=== PATIENT | male | born 1935 | race Caucasian/White ===

== ENCOUNTER 2017-03-19 10:33 | Observation (INO) ==
[2017-03-19] MEDS ORDERED: 0.9 % Sodium Chloride 1,000 ML IVC ONE (11:00)
--- NOTE | 2017-03-19 11:13 | Emergency Department Note ---
Disposition Clinical Impression: Orthostatic dizziness Syncope Qualifiers: Syncope type: unspecified Qualified Code(s): R55 - Syncope and collapse Chronic kidney disease Qualifiers: Chronic kidney disease stage: unspecified stage Qualified Code(s): N18.9 - Chronic kidney disease, unspecified Hypotension Qualifiers: Hypotension type: unspecified hypotension type Qualified Code(s): I95.9 - Hypotension, unspecified Disposition: Admitted As Inpatient Condition: Fair Referrals: Elbert Ashley DO [Primary Care Provider] - Forms: ED Satisfaction Letter Time of Disposition: 13:03 General Adult HPI - General Chief complaint: ED Syncope Stated complaint: Syncopal episode,right shoulder injury Time Seen by Provider: 03/19/17 11:00 Source: patient, family Mode of arrival: wheelchair Limitations: no limitations Nursing Notes Reviewed: Yes Vital Signs Reviewed: Yes - History of Present Illness HPI Narrative: 81-year-old male history of thyroid disease, chronic kidney disease s/p nephrectomy from renal cancer as well as low blood pressure presents for evaluation of syncope. Patient notes that he got up this morning to use the restroom. Patient does not recall the incidents of the fall but notes waking up in the morning on the floor and getting back to bed. Patient denies any specific prodrome. Family states this happened before within the past month and was instructed to be evaluated by cardiology with a Holter monitor which has not been performed. Patient stated he did lose consciousness but is unaware of how long. Patient's primary complaining of right shoulder pain. Patient denies any chest pain or shortness of breath. Denies any abdominal pain. No nausea or vomiting. Denies any headache. States that he does have a history of low blood pressure. No change in medications. Patient is instructed to ambulate with a walker however he is not been doing so. Lives at home with his . Pain Scale: 4 - Related Data Home Medications Medication Instructions Recorded Confirmed Levothyroxine [Synthroid] 75 mcg PO 0630 08/24/15 03/19/17 Carbidopa/Levodopa 2 tab PO TID 03/19/17 03/19/17 [Carbidopa-Levodopa 25-100 Tab] Midodrine HCl [Midodrine HCl] 5 mg PO TID 03/19/17 03/19/17 Tamsulosin [Flomax] 0.4 mg PO DAILY 03/19/17 03/19/17 Allergies Allergy/AdvReac Type Severity Reaction Status Date / Time No Known Allergies Allergy Verified 03/19/17 10:57 All systems ED: reviewed and negative except as stated. Constitutional: Denies: fever Cardiovascular: Denies: chest pain Respiratory: Denies: cough, dyspnea Gastrointestinal: Denies: abdominal pain, nausea, vomiting Genitourinary: Denies: dysuria Musculoskeletal: Denies: back pain Neurological: Denies: headache, weakness Past Medical History - Past Medical History Source: patient Medical history: Reports: cancer, other Surgical history: Reports: colectomy, herniorrhaphy, orthopedic, other, other Psychiatric history: Reports: no psych history - Social History Smoking Status: Former smoker Smokeless Tobacco Status: No Alcohol use: Reports: none Drug use: Reports: none Physical Exam - General Limitations: no limitations General appearance: alert, in no apparent distress - Head Head exam: atraumatic, normocephalic, normal inspection - Eye Eye exam: Present: normal appearance, PERRL, EOMI, miosis - ENT ENT exam: normal exam, normal oropharynx, mucous membranes moist - Neck Neck exam: Present: normal inspection, trachea midline - Chest Chest inspection: Present: normal inspection, symmetric chest wall rise - Respiratory Respiratory exam: Present: normal lung sounds bilaterally, respiratory distress - Cardiovascular Cardiovascular exam: Present: regular rate, normal rhythm. Absent: systolic murmur - Abdominal Exam Abdominal exam: Present: soft, Non-Tender - Extremities Exam Extremities exam: Present: normal inspection - Expanded Upper Extremity Exam Shoulder exam: Present: normal inspection, tenderness (Posterior right shoulder) . Absent: swelling, abrasion, ecchymosis, deformity Arm exam: Present: normal inspection. Absent: tenderness Elbow exam: Present: normal inspection. Absent: tenderness Forearm/Wrist exam: Present: normal inspection Hand exam: Present: normal inspection Vascular exam: Normal: capillary refill. Abnorm: radial pulse - Expanded Lower Extremity Exam Neurovascular/Tendon exam: Present: normal capillary refill - Back Exam Back exam: Present: normal inspection - Neurological Exam Neurological exam: Present: alert, oriented X3, CN II-XII intact - Skin Skin exam: Present: warm, dry, intact, normal color Course Course Narrative: Patient's medication was reviewed shows he is on carbidopa and levodopa however no specific diagnosis of Parkinson's. Also on Midrin. Patient likely has some autonomic dystrophy D which is causing his hypotension and recurrent falls. Patient in extensive evaluation with CT of the head and neck as well as imaging of the chest and right shoulder. Basic labs urinalysis and fluids. Disposition admission. - Reevaluation(s) Reevaluation #1: Patient seen and examined. Patient's pain is under control. No acute distress. Patient's repeat blood pressures were 160 systolic. Patient states he is feeling better. Time: 12:39 Vital Signs Temperature 98.9 F 03/19/17 10:54 Pulse Rate 74 03/19/17 10:54 Respiratory Rate 16 03/19/17 10:54 Blood Pressure 74/53 03/19/17 10:54 O2 Sat by Pulse Oximetry 96 03/19/17 10:54 Temperature 98.9 F 03/19/17 10:54 Pulse Rate 72 03/19/17 12:51 Respiratory Rate 14 03/19/17 12:51 Blood Pressure 172/103 03/19/17 12:51 O2 Sat by Pulse Oximetry 97 03/19/17 12:51 Oxygen Delivery Oxygen Delivery Room Air Medical Decision Making - [facility] Narrative Medical decision making narrative: 81-year-old male sent for evaluation of a single episode. Patient does not recall initial prodrome prior to the loss of conscious. Patient was using the restroom. This was unwitnessed. Patient does have a history of syncope in the past. Does not ambulate with a walker assistance. Patient's initial blood pressure was low. Says blood pressures have improved. His medication list shows that he is on carbidopa levodopa as well as Midorin. Patient's review of systems otherwise unremarkable. Patient had imaging of the head and neck which were unremarkable. Chest x-ray also unremarkable. Imaging of the shoulder shows no evidence of fracture. Likely muscle skeletal soft tissue origin related to the fall. Patient does have an element of chronic kidney disease and reports that he has had one kidney removed in the past due to renal cancer. Patient will be admitted to the hospital service for further evaluation and monitoring for his recurrent syncopal episodes which are likely the result of autonomic dysfunction. Patient was orthostatic. - Lab Data Lab results reviewed: Yes I reviewed the patient's lab results. Result diagrams: 03/19/17 11:23 03/19/17 11:23 Lab Results 03/19/17 03/19/17 03/19/17 Range/Units 11:23 11:23 11:23 WBC 8.5 (4.3-11.1) K/mcL RBC 4.67 (4.19-5.50) M/mcL Hgb 14.5 (12.9-16.9) g/dL Hct 42.8 (37.5-50.1) % MCV 91.6 (83.0-100.0) fL MCH 31.0 (28.0-33.3) pg MCHC 33.9 (31.6-35.5) g/dL RDW 12.4 (11.5-14.5) % Plt Count 143 (140-400) K/mcL MPV 9.8 (9.4-12.4) fL Immature Gran % 0.5 (0-4) % Seg Neutrophils % 82.5 % Lymphocytes % 10.5 % Monocytes % 5.9 % Eosinophils % 0.4 % Basophils % 0.2 % Neutrophils # 7.0 (1.6-8.9) K/mcL Lymphocytes # 0.9 (0.6-4.6) K/mcL Monocytes # 0.5 (0.0-1.3) K/mcL Eosinophils # 0.0 (0.0-0.6) K/mcL Basophils # 0.0 (0.0-0.2) K/mcL Sodium 139 (136-145) mEq/L Potassium 4.4 (3.5-5.1) mEq/L Chloride 106 (98-107) mEq/L Carbon Dioxide 25 (23-29) mEq/L BUN 23 (8-23) mg/dL Creatinine 1.47 H (0.70-1.30) mg/dL Est GFR ( Amer) 56 L (> 60) Est GFR (Non-Af Amer) 46 L (> 60) BUN/Creatinine Ratio 16 (6-26) Glucose 122 H (70-105) mg/dL Calculated Osmolality 293 (280-300) Lactic Acid 2.2 (0.5-2.2) mmol/L Calcium 9.1 (8.6-10.3) mg/dL Total Bilirubin 0.8 (0.3-1.0) mg/dL AST 17 (13-39) Units/L ALT < 3 L (7-52) Units/L Alkaline Phosphatase 73 (34-104) Units/L Creatine Kinase 146 (30-223) Units/L Troponin I (< 0.04) ng/mL Serum Total Protein 6.6 (6.4-8.9) g/dL Albumin 4.4 (3.5-5.7) g/dL Globulin 2.2 L (2.4-3.5) g/dL Albumin/Globulin Ratio 2.0 (1.1-2.2) TSH (0.340-5.600) mcIU/mL Urine Color (Yellow) Urine Clarity (Clear) Urine pH (5.0-8.0) pH Units Ur Specific [place] (1.010-1.025) Urine Protein (Neg-Trace) mg/dL Urine Glucose (UA) (Normal) mg/dL Urine Ketones (Negative) mg/dL Urine Blood (Negative) Urine Nitrite (Negative) Urine Bilirubin (Negative) Urine Urobilinogen (Normal) mg/dL Ur Leukocyte Esterase (Negative) Blood Type Antibody Screen 03/19/17 03/19/17 03/19/17 Range/Units 11:23 11:23 11:57 WBC (4.3-11.1) K/mcL RBC (4.19-5.50) M/mcL Hgb (12.9-16.9) g/dL Hct (37.5-50.1) % MCV (83.0-100.0) fL MCH (28.0-33.3) pg MCHC (31.6-35.5) g/dL RDW (11.5-14.5) % Plt Count (140-400) K/mcL MPV (9.4-12.4) fL Immature Gran % (0-4) % Seg Neutrophils % % Lymphocytes % % Monocytes % % Eosinophils % % Basophils % % Neutrophils # (1.6-8.9) K/mcL Lymphocytes # (0.6-4.6) K/mcL Monocytes # (0.0-1.3) K/mcL Eosinophils # (0.0-0.6) K/mcL Basophils # (0.0-0.2) K/mcL Sodium (136-145) mEq/L Potassium (3.5-5.1) mEq/L Chloride (98-107) mEq/L Carbon Dioxide (23-29) mEq/L BUN (8-23) mg/dL Creatinine (0.70-1.30) mg/dL Est GFR ( Amer) (> 60) Est GFR (Non-Af Amer) (> 60) BUN/Creatinine Ratio (6-26) Glucose (70-105) mg/dL Calculated Osmolality (280-300) Lactic Acid (0.5-2.2) mmol/L Calcium (8.6-10.3) mg/dL Total Bilirubin (0.3-1.0) mg/dL AST (13-39) Units/L ALT (7-52) Units/L Alkaline Phosphatase (34-104) Units/L Creatine Kinase (30-223) Units/L Troponin I < 0.03 (< 0.04) ng/mL Serum Total Protein (6.4-8.9) g/dL Albumin (3.5-5.7) g/dL Globulin (2.4-3.5) g/dL Albumin/Globulin Ratio (1.1-2.2) TSH 1.109 (0.340-5.600) mcIU/mL Urine Color (Yellow) Urine Clarity (Clear) Urine pH (5.0-8.0) pH Units Ur Specific [place] (1.010-1.025) Urine Protein (Neg-Trace) mg/dL Urine Glucose (UA) (Normal) mg/dL Urine Ketones (Negative) mg/dL Urine Blood (Negative) Urine Nitrite (Negative) Urine Bilirubin (Negative) Urine Urobilinogen (Normal) mg/dL Ur Leukocyte Esterase (Negative) Blood Type O NEGATIVE Antibody Screen NEGATIVE 03/19/17 Range/Units 12:09 WBC (4.3-11.1) K/mcL RBC (4.19-5.50) M/mcL Hgb (12.9-16.9) g/dL Hct (37.5-50.1) % MCV (83.0-100.0) fL MCH (28.0-33.3) pg MCHC (31.6-35.5) g/dL RDW (11.5-14.5) % Plt Count (140-400) K/mcL MPV (9.4-12.4) fL Immature Gran % (0-4) % Seg Neutrophils % % Lymphocytes % % Monocytes % % Eosinophils % % Basophils % % Neutrophils # (1.6-8.9) K/mcL Lymphocytes # (0.6-4.6) K/mcL Monocytes # (0.0-1.3) K/mcL Eosinophils # (0.0-0.6) K/mcL Basophils # (0.0-0.2) K/mcL Sodium (136-145) mEq/L Potassium (3.5-5.1) mEq/L Chloride (98-107) mEq/L Carbon Dioxide (23-29) mEq/L BUN (8-23) mg/dL Creatinine (0.70-1.30) mg/dL Est GFR ( Amer) (> 60) Est GFR (Non-Af Amer) (> 60) BUN/Creatinine Ratio (6-26) Glucose (70-105) mg/dL Calculated Osmolality (280-300) Lactic Acid (0.5-2.2) mmol/L Calcium (8.6-10.3) mg/dL Total Bilirubin (0.3-1.0) mg/dL AST (13-39) Units/L ALT (7-52) Units/L Alkaline Phosphatase (34-104) Units/L Creatine Kinase (30-223) Units/L Troponin I (< 0.04) ng/mL Serum Total Protein (6.4-8.9) g/dL Albumin (3.5-5.7) g/dL Globulin (2.4-3.5) g/dL Albumin/Globulin Ratio (1.1-2.2) TSH (0.340-5.600) mcIU/mL Urine Color Yellow (Yellow) Urine Clarity Clear (Clear) Urine pH 6.0 (5.0-8.0) pH Units Ur Specific [place] 1.019 (1.010-1.025) Urine Protein Negative (Neg-Trace) mg/dL Urine Glucose (UA) Normal (Normal) mg/dL Urine Ketones Negative (Negative) mg/dL Urine Blood Negative (Negative) Urine Nitrite Negative (Negative) Urine Bilirubin Negative (Negative) Urine Urobilinogen Normal (Normal) mg/dL Ur Leukocyte Esterase Negative (Negative) Blood Type Antibody Screen - Radiology Data Radiology results reviewed: Yes I reviewed the patient's radiology results. Chest X-Ray 03/19/17 11:00 IMPRESSION: No evidence for acute cardiopulmonary process. D/ / 03/19/2017 11:26:27 Kaleb Woodruff MD / bcarter Interpreting Provider: Kaleb Woodruff MD Shoulder X-Ray 03/19/17 11:09 IMPRESSION: No acute abnormalities. Degenerative changes to the AC joint. D/ / 03/19/2017 11:27:04 Kaleb Woodruff MD / lgray Interpreting Provider: Kaleb Woodruff MD Cervical Spine CT 03/19/17 11:10 IMPRESSION: No acute abnormality of the cervical spine. D/ / Alejandro Vail MD / Alejandro Vail MD Interpreting Provider: Alejandro Vail MD Head CT 03/19/17 11:10 IMPRESSION: No acute intracranial abnormality. D/ / Kaleb Woodruff MD / Kaleb Woodruff MD Interpreting Provider: Kaleb Woodruff MD - EKG Data EKG #1 EKG attestation: Yes I reviewed and interpreted this EKG. EKG shows normal: sinus rhythm Rate: normal Rhythm: NSR, arrhythmia [place]/QRS: left axis deviation, LAHB/LAFB Voltage: c/w LVH Interpretation: no acute changes, nonspecific ST-T wave changes S.B.A.RHeather - S.B.AHeatherRHeather Situation: Demographics Background: Presenting Complaint Assessment: Vital Signs, Course and respsone to treatment, Patient/Family Expectation Recommendation: Barrier(s) to disposition, Recommendation based on pending studies, treatments, or consults S.B.A.RHeather Report Given to: Dr. Aga Lugo Repor Time: 13:03
[2017-03-19] MEDS ORDERED: *HR* HYDROcodone/Acet 5/325 mg TABLET PO ONE (11:15)
--- NOTE | 2017-03-19 11:15 | Emergency Department Note ---
Disposition Clinical Impression: Syncope, Chronic kidney disease, Orthostatic dizziness, Hypotension Disposition: Admitted As Inpatient Condition: Fair General Adult HPI - General Chief complaint: ED Syncope Stated complaint: Syncopal episode,right shoulder injury Time Seen by Provider: 03/19/17 11:00 Source: patient, family Mode of arrival: wheelchair Limitations: no limitations - History of Present Illness Pain Scale: 4 - Related Data Home Medications Medication Instructions Recorded Confirmed Levothyroxine [Synthroid] 75 mcg PO 0630 08/24/15 03/19/17 Carbidopa/Levodopa 2 tab PO TID 03/19/17 03/19/17 [Carbidopa-Levodopa 25-100 Tab] Midodrine HCl [Midodrine HCl] 5 mg PO TID 03/19/17 03/19/17 Tamsulosin [Flomax] 0.4 mg PO DAILY 03/19/17 03/19/17 Allergies Allergy/AdvReac Type Severity Reaction Status Date / Time No Known Allergies Allergy Verified 03/19/17 10:57 Past Medical History - Past Medical History Medical history: Reports: cancer, other Surgical history: Reports: colectomy, herniorrhaphy, orthopedic, other, other Psychiatric history: Reports: no psych history - Social History Smoking Status: Former smoker Smokeless Tobacco Status: No Alcohol use: Reports: none Drug use: Reports: none Physical Exam - General Limitations: no limitations General appearance: alert, in no apparent distress Course Vital Signs Temperature 98.9 F 03/19/17 10:54 Pulse Rate 74 03/19/17 10:54 Respiratory Rate 16 03/19/17 10:54 Blood Pressure 74/53 03/19/17 10:54 O2 Sat by Pulse Oximetry 96 03/19/17 10:54 Temperature 98.0 F 03/19/17 14:20 Pulse Rate 81 03/19/17 15:27 Respiratory Rate 16 03/19/17 14:20 Blood Pressure 151/91 03/19/17 15:27 O2 Sat by Pulse Oximetry 95 03/19/17 14:20 Oxygen Delivery Oxygen Delivery Room Air Medical Decision Making - Lab Data Result diagrams: 03/19/17 11:23 03/19/17 11:23 Lab Results 03/19/17 03/19/17 03/19/17 Range/Units 11:23 11:23 11:23 WBC 8.5 (4.3-11.1) K/mcL RBC 4.67 (4.19-5.50) M/mcL Hgb 14.5 (12.9-16.9) g/dL Hct 42.8 (37.5-50.1) % MCV 91.6 (83.0-100.0) fL MCH 31.0 (28.0-33.3) pg MCHC 33.9 (31.6-35.5) g/dL RDW 12.4 (11.5-14.5) % Plt Count 143 (140-400) K/mcL MPV 9.8 (9.4-12.4) fL Immature Gran % 0.5 (0-4) % Seg Neutrophils % 82.5 % Lymphocytes % 10.5 % Monocytes % 5.9 % Eosinophils % 0.4 % Basophils % 0.2 % Neutrophils # 7.0 (1.6-8.9) K/mcL Lymphocytes # 0.9 (0.6-4.6) K/mcL Monocytes # 0.5 (0.0-1.3) K/mcL Eosinophils # 0.0 (0.0-0.6) K/mcL Basophils # 0.0 (0.0-0.2) K/mcL Sodium 139 (136-145) mEq/L Potassium 4.4 (3.5-5.1) mEq/L Chloride 106 (98-107) mEq/L Carbon Dioxide 25 (23-29) mEq/L BUN 23 (8-23) mg/dL Creatinine 1.47 H (0.70-1.30) mg/dL Est GFR ( Amer) 56 L (> 60) Est GFR (Non-Af Amer) 46 L (> 60) BUN/Creatinine Ratio 16 (6-26) Glucose 122 H (70-105) mg/dL Calculated Osmolality 293 (280-300) Lactic Acid 2.2 (0.5-2.2) mmol/L Calcium 9.1 (8.6-10.3) mg/dL Total Bilirubin 0.8 (0.3-1.0) mg/dL AST 17 (13-39) Units/L ALT < 3 L (7-52) Units/L Alkaline Phosphatase 73 (34-104) Units/L Creatine Kinase 146 (30-223) Units/L Troponin I (< 0.04) ng/mL Serum Total Protein 6.6 (6.4-8.9) g/dL Albumin 4.4 (3.5-5.7) g/dL Globulin 2.2 L (2.4-3.5) g/dL Albumin/Globulin Ratio 2.0 (1.1-2.2) TSH (0.340-5.600) mcIU/mL Urine Color (Yellow) Urine Clarity (Clear) Urine pH (5.0-8.0) pH Units Ur Specific [place] (1.010-1.025) Urine Protein (Neg-Trace) mg/dL Urine Glucose (UA) (Normal) mg/dL Urine Ketones (Negative) mg/dL Urine Blood (Negative) Urine Nitrite (Negative) Urine Bilirubin (Negative) Urine Urobilinogen (Normal) mg/dL Ur Leukocyte Esterase (Negative) Blood Type Antibody Screen 03/19/17 03/19/17 03/19/17 Range/Units 11:23 11:23 11:57 WBC (4.3-11.1) K/mcL RBC (4.19-5.50) M/mcL Hgb (12.9-16.9) g/dL Hct (37.5-50.1) % MCV (83.0-100.0) fL MCH (28.0-33.3) pg MCHC (31.6-35.5) g/dL RDW (11.5-14.5) % Plt Count (140-400) K/mcL MPV (9.4-12.4) fL Immature Gran % (0-4) % Seg Neutrophils % % Lymphocytes % % Monocytes % % Eosinophils % % Basophils % % Neutrophils # (1.6-8.9) K/mcL Lymphocytes # (0.6-4.6) K/mcL Monocytes # (0.0-1.3) K/mcL Eosinophils # (0.0-0.6) K/mcL Basophils # (0.0-0.2) K/mcL Sodium (136-145) mEq/L Potassium (3.5-5.1) mEq/L Chloride (98-107) mEq/L Carbon Dioxide (23-29) mEq/L BUN (8-23) mg/dL Creatinine (0.70-1.30) mg/dL Est GFR ( Amer) (> 60) Est GFR (Non-Af Amer) (> 60) BUN/Creatinine Ratio (6-26) Glucose (70-105) mg/dL Calculated Osmolality (280-300) Lactic Acid (0.5-2.2) mmol/L Calcium (8.6-10.3) mg/dL Total Bilirubin (0.3-1.0) mg/dL AST (13-39) Units/L ALT (7-52) Units/L Alkaline Phosphatase (34-104) Units/L Creatine Kinase (30-223) Units/L Troponin I < 0.03 (< 0.04) ng/mL Serum Total Protein (6.4-8.9) g/dL Albumin (3.5-5.7) g/dL Globulin (2.4-3.5) g/dL Albumin/Globulin Ratio (1.1-2.2) TSH 1.109 (0.340-5.600) mcIU/mL Urine Color (Yellow) Urine Clarity (Clear) Urine pH (5.0-8.0) pH Units Ur Specific [place] (1.010-1.025) Urine Protein (Neg-Trace) mg/dL Urine Glucose (UA) (Normal) mg/dL Urine Ketones (Negative) mg/dL Urine Blood (Negative) Urine Nitrite (Negative) Urine Bilirubin (Negative) Urine Urobilinogen (Normal) mg/dL Ur Leukocyte Esterase (Negative) Blood Type O NEGATIVE Antibody Screen NEGATIVE 03/19/17 Range/Units 12:09 WBC (4.3-11.1) K/mcL RBC (4.19-5.50) M/mcL Hgb (12.9-16.9) g/dL Hct (37.5-50.1) % MCV (83.0-100.0) fL MCH (28.0-33.3) pg MCHC (31.6-35.5) g/dL RDW (11.5-14.5) % Plt Count (140-400) K/mcL MPV (9.4-12.4) fL Immature Gran % (0-4) % Seg Neutrophils % % Lymphocytes % % Monocytes % % Eosinophils % % Basophils % % Neutrophils # (1.6-8.9) K/mcL Lymphocytes # (0.6-4.6) K/mcL Monocytes # (0.0-1.3) K/mcL Eosinophils # (0.0-0.6) K/mcL Basophils # (0.0-0.2) K/mcL Sodium (136-145) mEq/L Potassium (3.5-5.1) mEq/L Chloride (98-107) mEq/L Carbon Dioxide (23-29) mEq/L BUN (8-23) mg/dL Creatinine (0.70-1.30) mg/dL Est GFR ( Amer) (> 60) Est GFR (Non-Af Amer) (> 60) BUN/Creatinine Ratio (6-26) Glucose (70-105) mg/dL Calculated Osmolality (280-300) Lactic Acid (0.5-2.2) mmol/L Calcium (8.6-10.3) mg/dL Total Bilirubin (0.3-1.0) mg/dL AST (13-39) Units/L ALT (7-52) Units/L Alkaline Phosphatase (34-104) Units/L Creatine Kinase (30-223) Units/L Troponin I (< 0.04) ng/mL Serum Total Protein (6.4-8.9) g/dL Albumin (3.5-5.7) g/dL Globulin (2.4-3.5) g/dL Albumin/Globulin Ratio (1.1-2.2) TSH (0.340-5.600) mcIU/mL Urine Color Yellow (Yellow) Urine Clarity Clear (Clear) Urine pH 6.0 (5.0-8.0) pH Units Ur Specific [place] 1.019 (1.010-1.025) Urine Protein Negative (Neg-Trace) mg/dL Urine Glucose (UA) Normal (Normal) mg/dL Urine Ketones Negative (Negative) mg/dL Urine Blood Negative (Negative) Urine Nitrite Negative (Negative) Urine Bilirubin Negative (Negative) Urine Urobilinogen Normal (Normal) mg/dL Ur Leukocyte Esterase Negative (Negative) Blood Type Antibody Screen Attestation Statement - Attestation Attestation: I examined this patient and my medical decision-making was reviewed with the Resident Physician. I agree with the documented findings, disposition and treatment plan as described except to the extent set forth below. [id number] time provided Patient had a syncopal event. This is recurrent. The patient was to be set up with a Holter monitor as an outpatient but has yet to do so. He appears in no acute distress on exam. ECG reviewed by me
[2017-03-19 11:35] LABS: Basophils % 0.2 %; Eosinophils % 0.4 %; Hematocrit 42.8 % (37.5-50.1); Hemoglobin 14.5 g/dL (12.9-16.9); Immature Granulocytes % 0.5 % (0-4); Lymphocytes # 0.9 K/mcL (0.6-4.6); Lymphocytes % 10.5 %; Mean Corpuscular HGB Conc 33.9 g/dL (31.6-35.5); Mean Corpuscular Volume 91.6 fL (83.0-100.0); Mean Platelet Volume 9.8 fL (9.4-12.4); Monocytes # 0.5 K/mcL (0.0-1.3); Monocytes % 5.9 %; Platelet Count 143 K/mcL (140-400); Red Blood Count 4.67 M/mcL (4.19-5.50); Red Cell Distribution Width 12.4 % (11.5-14.5); Segmented Neutrophils % 82.5 %
[2017-03-19 11:51] LABS: Alanine Aminotransferase < 3 Units/L (7-52); Albumin 4.4 g/dL (3.5-5.7); Alkaline Phosphatase 73 Units/L (34-104); Aspartate Amino Transferase 17 Units/L (13-39); BUN/Creatinine Ratio 16 (6-26); Bilirubin,Total 0.8 mg/dL (0.3-1.0); Blood Urea Nitrogen 23 mg/dL (8-23); Calcium 9.1 mg/dL (8.6-10.3); Carbon Dioxide 25 mEq/L (23-29); Chloride 106 mEq/L (98-107); Creatine Kinase 146 Units/L (30-223); Globulin 2.2 g/dL (2.4-3.5); Glucose 122 mg/dL (70-105); Osmolality,Calculated 293 (280-300); Potassium 4.4 mEq/L (3.5-5.1); Sodium 139 mEq/L (136-145); Total Protein 6.6 g/dL (6.4-8.9); eGFR For African Americans 56 (> 60); eGFR For Non-African Americans 46 (> 60)
[2017-03-19 12:28] LABS: Bilirubin,Urine Negative (Negative); Blood,Urine Negative (Negative); Clarity,Urine Clear (Clear); Color,Urine Yellow (Yellow); Glucose,Urine (UA) Normal (Normal); Ketones,Urine Negative (Negative); Leukocyte Esterase,Urine Negative (Negative); Nitrite,Urine Negative (Negative); Protein,Urine Negative (Neg-Trace); Specific Gravity,Urine 1.019 (1.010-1.025); Urobilinogen,Urine Normal (Normal)
[2017-03-19] MEDS ORDERED: Naloxone 0.4 MG/ML INJ IVP PRN (14:14)
[2017-03-19] MEDS ORDERED: 0.9 % Sodium Chloride 1,000 ML IVC SCH (14:15)
--- NOTE | 2017-03-19 14:22 | Internal Med History&Physical ---
<Aron Glass - Last Filed: 03/19/17 14:30> Date of Encounter: 03/19/17 Time of Encounter: 14:20 Assessment and Plan (1) Vasodepressor syncope Current visit: Yes Status: Acute Patient was admitted today following a syncopal event in which he did not sustain head trauma at 0400 this morning secondary to vasodepressor syndrome He has had a thorough workup in the past including a tilt table and is following with cardiology. Cardiology has previously diagnosed the patient with vasodepressor syndrome, and he is taking midodrine The family discussed that approximately one month ago he had a similar event and that after thorough discussion with Dr. 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 Had a nephrectomy in 1998 SR Cr stable -avoid nephrotoxins -IVF 100ml/hr -BMP in the am Qualifiers: Chronic kidney disease stage: unspecified stage Qualified Code(s): N18.9 - Chronic kidney disease, unspecified (5) Hypertension Current visit: Yes Status: Acute Was initially hypotensive on arrival however now is hypertensive urgency with SBP in the 190s -Hydralazine IV push every 6 hours when necessary for SBP greater than 160 Qualifiers: Hypertension type: secondary to other renal disorders Qualified Code(s): I15.1 - Hypertension secondary to other renal disorders (6) DVT prophylaxis Current visit: Yes Status: Acute Heparin 5000 units SC BID Internal Medicine - H&P: HPI Chief complaint: syncope Admitted From: Home Plans for Post Hospital Care: Home History of present illness: Mr. Burrell is a 81 year old male with a PMH of hypothyroidism and chronic kidney disease S/P nephrectomy for renal cancer. He presents today for a syncopal event which occurred at 0400 this morning. The patient notes that when he awoke to use the restroom he turns or loss of consciousness. He reports that he was dizzy prior to this other than that no additional specific prodrome. He states this has been occurring intermittently and he is seeing cardiology for this issue. If her evaluation of his past history reveals that he has been diagnosed with vasodepressive syndrome after having a positive tilt table test. Initial workup in the emergency department included a head CT, shoulder x-ray and CT of neck which were found to be unremarkable. Lab workup was also unremarkable. The patient is being admitted for further monitoring and evaluation of recurring syncope. Past Med Surg Social Fam HX - Past Medical History Medical history: cancer, other Psychiatric history: no psych history - Past Surgical History Surgical History: colectomy, herniorrhaphy, orthopedic, other, other - Social History Smoking Status: Former smoker Smokeless Tobacco Status: No Alcohol use: none Drug use: none - Additional Family History Additional family history: Noncontributory Internal Medicine - H&P: Meds Levothyroxine [Synthroid] 75 mcg PO 0630 08/24/15 [History] Carbidopa/Levodopa [Carbidopa-Levodopa 25-100 Tab] 2 tab PO TID 03/19/17 [ History] Midodrine HCl [Midodrine HCl] 5 mg PO TID 03/19/17 [History] Tamsulosin [Flomax] 0.4 mg PO DAILY 03/19/17 [History] 3 Allergy/AdvReac Type Severity Reaction Status Date / Time No Known Allergies Allergy Verified 03/19/17 10:57 All Systems PM: A 10-system review of systems was performed and is negative for pertinent findings except as documented above in the HPI. - Constitutional Constitutional: no chills, no fever(s), no night sweats - EENT Eyes: blurry vision (chronic), no change in vision, no discharge, no pain, no photophobia Ears: no ear discharge, no ear pain, no tinnitus Nose, mouth and throat: no dysphagia, no nasal discharge, no neck pain, no sore throat - Cardiovascular Cardiovascular ROS IM: lightheadedness, syncope, no chest pain, no diaphoresis, no dyspnea, no irregular heart rhythm, no palpitations - Respiratory Respiratory: no cough, no dyspnea, no wheezing, no excessive phlegm production - Gastrointestinal Gastrointestinal: no abdominal pain, no diarrhea, no hematemesis, no hematochezia, no melena, no nausea, no vomiting - Musculoskeletal Musculoskeletal ROS IM: no numbness, no tingling - Integumentary Integumentary IM: no rash, no unusual bruising - Neurological Neurological ROS: dizziness, frequent falls, no confusion, no convulsions, no focal weakness, no headache(s), no numbness, no tingling, no tremor(s) - Hematologic/Lymphatic Hematologic/Lymphatic: no easy bruising - Constitutional Vitals: Temp Pulse Resp BP Pulse Ox 98.9 F 75 14 179/107 97 03/19/17 10:54 03/19/17 13:03 03/19/17 12:51 03/19/17 13:03 03/19/17 12:51 General appearance: Present: cooperative, A&O X 3, no acute distress, answers questions appropriately - Head Head exam: Present: atraumatic, normocephalic - Eye Eye exam: Present: PERRL, conjuntiva pink, sclera anicteric Pupils: Present: PERRL - Neck Neck exam general surgery: Present: supple, trachea midline. Absent: lymphadenopathy - Respiratory Respiratory exam: Present: CTAB. Absent: accessory muscle use, rales, rhonchi, wheezes - Cardiovascular Cardiovascular exam: Present: RRR, +S1, +S2. Absent: diastolic murmur, gallop, rubs, systolic murmur - GI/Abdominal GI/Abdominal exam: Present: normal bowel sounds, soft, no peritoneal signs. Absent: distended, tenderness - Extremities Exam Extremities exam: Present: warm, radial pulses palpable and symmetrical. Absent : calf tenderness, cyanotic, pedal edema - Neurological Exam Neurological exam: Present: CN II-XII intact, oriented X3, no focal deficits. Absent: pronater drift, facial droop, speech deficit - Skin Skin exam: Present: dry, intact Internal Med - H&P Results - Labs CBC & Chem 7: 03/19/17 11:23 03/19/17 11:23 - EKG Data -: EKG Interpreted by Myself EKG shows normal: sinus rhythm - EKG Data EKG comments: Sinus rhythm with sinus arrhythmia 03/19/17 14:22 - Impressions Impressions Chest X-Ray 03/19/17 11:00 IMPRESSION: No evidence for acute cardiopulmonary process. D/ / 03/19/2017 11:26:27 Kaleb Woodruff MD / [email or web address] Interpreting Provider: Kaleb Woodruff MD Shoulder X-Ray 03/19/17 11:09 IMPRESSION: No acute abnormalities. Degenerative changes to the AC joint. D/ / 03/19/2017 11:27:04 Kaleb Woodruff MD / [facility] Interpreting Provider: Kaleb Woodruff MD Cervical Spine CT 03/19/17 11:10 IMPRESSION: No acute abnormality of the cervical spine. D/ / Alejandro Vail MD / Alejandro Vail MD Interpreting Provider: Alejandro Vail MD Head CT 03/19/17 11:10 IMPRESSION: No acute intracranial abnormality. D/ / Kaleb Woodruff MD / Kaleb Woodruff MD Interpreting Provider: Kaleb Woodruff MD <Walker Oliva T - Last Filed: 03/19/17 21:44> Date of Encounter: 03/19/17 Internal Medicine - H&P: HPI History of present illness: Mr. Burrell is a 81 year old male All Systems PM: A 10-system review of systems was performed and is negative for pertinent findings except as documented above in the HPI. - Constitutional Vitals: Temp Pulse Resp BP Pulse Ox 97.9 F 68 18 119/73 96 03/19/17 19:54 03/19/17 19:54 03/19/17 19:54 03/19/17 19:54 03/19/17 19:54 Internal Med - H&P Results - Labs CBC & Chem 7: 03/19/17 11:23 03/19/17 11:23 Labs: Cardiac Enzymes 03/19/17 Range/Units 15:53 Troponin I < 0.03 (< 0.04) ng/mL - Attending Attestation The pat. was independently examined and his available records were reviewed. I agree with the DELI COOK's A&P. 81 yr old man with history of syncope extensively w/u in the recent past. No significant injury today following the syncopal event. Cardiology consulted. Echo and Carotid doppler U/S done and results pending.
[2017-03-19] MEDS: Carbidopa/Levodopa 25/100 TABLET PO SCH ×2 (15:26→20:36)
[2017-03-19] MEDS: amLODIPine 5 MG TABLET PO SCH (15:30)
--- NOTE | 2017-03-19 15:35 | Cardiology Consult Note ---
Date of Encounter: 03/19/17 Time of Encounter: 15:23 Assessment and Plan (1) Vasodepressor syncope Current Visit: Yes Status: Acute Syncopal event likely due to vasodepressor syncope. Orthostatic vitals are positive. H/o abnormal tilt table test in 2016 suggesting predisposition to vasodepressor syncope. B/p in the 70's systolic on arrival. He is now hypertensive. Agree with IV hydration. Add compression stockings. Continue midodrine. We will add norvasc for hypertension. Discussed liberal fluid and salt intake at home. Continue to monitor telemetry. Check TTE. (2) Orthostatic dizziness Current Visit: Yes Status: Acute (3) Hypertension Current Visit: Yes Status: Acute Add norvasc. Qualifiers: Hypertension type: essential hypertension Qualified Code(s): I10 - Essential (primary) hypertension Discussion w patient/family: The assessment and plan as outlined above was discussed with the patient and/or family members who expressed understanding and agreement. All questions were answered. Thank you for involving us in the care of your patient. Please call with any questions. History of Present Illness Consult date: 03/19/17 Requesting physician: Aron Glass Consult reason: syncope Chief complaint: Syncopal event History of present illness: Mr. Burrell is a 81 year old male with a past medical history of orthostatic hypotension, hypothyroidism, and Parkisons who presents after having syncopal event at home. He woke up at 4:00 am this morning and went to the bathroom. When he stood up from the toilet to walk back to his bed he fell. He says he blacked out. He did have dizziness when standing. He hit his shoulder when he fell and he cannot move his arm well now. 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 He underwent tilt test in 2016 that suggest predisposition to vasodepressor syncope. Midodrine was started shortly after for orthostatic hypotension that did not resolve with liberal fluid intake. He drinks 60 ounces of water a day and a bottle of gatoraid. He also drinks two cups of coffee. According to past records he declined echocardiogram or further work-up for his syncope in the past. This is his first hospitalization for syncope. Past Med Surg Social Fam HX - Past Medical History Attestation: Yes The following information was validated with the patient. Medical history: cancer, other (Orthostatic hypotension, parkinsons symptoms ) Psychiatric history: no psych history - Past Surgical History Surgical History: colectomy, herniorrhaphy, orthopedic, other, other - Social History Smoking Status: Former smoker Smokeless Tobacco Status: No Alcohol use: none Drug use: none Medications and Allergies Levothyroxine [Synthroid] 75 mcg PO 0630 08/24/15 [History] Carbidopa/Levodopa [Carbidopa-Levodopa 25-100 Tab] 2 tab PO TID 03/19/17 [ History] Midodrine HCl [Midodrine HCl] 5 mg PO TID 03/19/17 [History] Tamsulosin [Flomax] 0.4 mg PO DAILY 03/19/17 [History] 3 Allergy/AdvReac Type Severity Reaction Status Date / Time No Known Allergies Allergy Verified 03/19/17 10:57 All Systems Review: A 10-system review of systems was performed and is negative for pertinent findings except as documented above in the HPI. Physical Examination Vital Signs, Last 4 Hours Temp Pulse Resp BP Pulse Ox 03/19/17 14:20 98.0 F 85 16 196/133 95 General: Conversant, No Apparent Distress HEENT: Atraumatic, Normocephaly, Mucus Membranes Moist Neck: No JVD, Normal carotid pulses Cardiac: Reg Rate and Rhythm, Normal S1 and S2, No Murmur Lungs: Normal Breath Sounds, No Wheeze, Rales, Rhonchi Neuro: Alert and responsive, No focal deficits noted Abdomen: Soft, Non-Tender Skin: No rashes noted on visualized skin Musculoskeletal: No Chest Wall Tenderness Extremities: No Clubbing, No Cyanosis, No Edema, Normal Pulses, Other (Limited mobility right shoulder) Results 03/19/17 11:23 03/19/17 11:23 Chest X-Ray 03/19/17 11:00 IMPRESSION: No evidence for acute cardiopulmonary process. D/ / 03/19/2017 11:26:27 Kaleb Woodruff MD / [facility] Interpreting Provider: Kaleb Woodruff MD Shoulder X-Ray 03/19/17 11:09 IMPRESSION: No acute abnormalities. Degenerative changes to the AC joint. D/ / 03/19/2017 11:27:04 Kaleb Woodruff MD / [facility] Interpreting Provider: Kaleb Woodruff MD Cervical Spine CT 03/19/17 11:10 IMPRESSION: No acute abnormality of the cervical spine. D/ / Alejandro Vail MD / Alejandro Vail MD Interpreting Provider: Alejandro Vail MD Head CT 03/19/17 11:10 IMPRESSION: No acute intracranial abnormality. D/ / Kaleb Woodruff MD / Kaleb Woodruff MD Interpreting Provider: Kaleb Woodruff MD - Imaging and Cardiology Echo: pending - EKG Interpretation EKG results cardiology: personally reviewed (Sinus arrythmia, no acute ST changes) Consult Discharge Plan - Plan Referrals: Elbert Ashley DO [Primary Care Provider] -
[2017-03-19] MEDS: 0.9 % Sodium Chloride 1,000 ML IVC SCH (15:47)
[2017-03-19] MEDS: *HR* Heparin 5,000 UNIT/ML VIAL SQ SCH (17:22)
[2017-03-19] MEDS ORDERED: *HR* HYDROcodone/Acet 5/325 mg TABLET PO PRN (19:49)
[2017-03-20 04:50] LABS: Mean Corpuscular HGB Conc 34.1 g/dL (31.6-35.5); Mean Corpuscular Hemoglobin 30.7 pg (28.0-33.3); Mean Platelet Volume 10.5 fL (9.4-12.4); Platelet Count 122 K/mcL (140-400); Red Blood Count 4.11 M/mcL (4.19-5.50); Red Cell Distribution Width 12.3 % (11.5-14.5)
[2017-03-20 04:51] LABS: Hemoglobin 12.6 g/dL (12.9-16.9)
[2017-03-20 05:18] LABS: Chloride 109 mEq/L (98-107); Potassium 4.1 mEq/L (3.5-5.1); Sodium 139 mEq/L (136-145)
[2017-03-20 05:46] LABS: BUN/Creatinine Ratio 18 (6-26); Blood Urea Nitrogen 22 mg/dL (8-23); Calcium 8.4 mg/dL (8.6-10.3); Carbon Dioxide 24 mEq/L (23-29); Glucose 100 mg/dL (70-105); Osmolality,Calculated 291 (280-300); eGFR For African Americans > 60 (> 60); eGFR For Non-African Americans 58 (> 60)
[2017-03-20] MEDS: *HR* Heparin 5,000 UNIT/ML VIAL SQ SCH ×2 (06:31→18:35)
--- NOTE | 2017-03-20 06:46 | Electrocardiograph Report ---
[employer] Test Date: 2017-03-19 Pat Name: Forrest Burrell Department: 104 Room: 2A26 Gender: M Strapper: : [id number] Requested By: Lukas Dodd Order Number: [id number] Reading MD: Trace Odonnell MD Measurements Intervals Radiant Rate: 72 P: 87 MT: 202 QRS: -48 QRSD: 113 T: 50 QT: 402 QTc: 427 Interpretive Statements SINUS RHYTHM WITH SINUS ARRHYTHMIA LEFT ANTERIOR FASCICULAR BLOCK MODERATE VOLTAGE CRITERIA FOR LVH, CONSIDER NORMAL VARIANT Electronically Signed On 03-20-2017 6:43:55 EST by Trace Odonnell MD
[2017-03-20] MEDS: Carbidopa/Levodopa 25/100 TABLET PO SCH ×3 (07:48→20:07)
[2017-03-20] MEDS: 0.9 % Sodium Chloride 1,000 ML IVC SCH (07:49)
[2017-03-20] MEDS: amLODIPine 5 MG TABLET PO SCH (07:49)
--- NOTE | 2017-03-20 10:52 | Cardiology Progress Note ---
Date of Encounter: 03/20/17 Time of Encounter: 10:47 Assessment and Plan (1) Vasodepressor syncope Current Visit: Yes Status: Acute Vasodepressor syncope. Orthostatic vitals are positive. H/o abnormal tilt table test in 2016 suggesting predisposition to vasodepressor syncope. B/p in the 70's systolic on arrival. Also hypertensive during stay. Agree with IV hydration. Continue compression stockings and midodrine. May need to add florinef. Norvasc for hypertension. Discussed liberal fluid intake at home. TTE shows preserved EF. No significant valvular disease. Telemetry shows avg HR 68 bpm. No bradycardia or pauses seen. No VT. Repeat orthostatic vitals. (2) Orthostatic dizziness Current Visit: Yes Status: Acute (3) Hypertension Current Visit: Yes Status: Acute Norvasc added. Qualifiers: Hypertension type: essential hypertension Qualified Code(s): I10 - Essential (primary) hypertension Discussion w patient/family: The assessment and plan as outlined above was discussed with the patient and/or family members who expressed understanding and agreement. All questions were answered. Thank you for involving us in the care of your patient. Please call with any questions. Subjective Principal diagnosis: vasodepressor syncope, autonomic dysfunction Interval history: Mr. Burrell denies recurrent symptoms. He has not ambulated today. Objective Vital Signs, Last 4 Hours Temp Pulse Resp BP Pulse Ox 03/20/17 08:38 124/83 03/20/17 07:25 97.9 F 70 14 172/102 93 General: Conversant, No Apparent Distress HEENT: Atraumatic, Normocephaly, Mucus Membranes Moist Neck: No JVD, Normal carotid pulses Cardiac: Reg Rate and Rhythm, Normal S1 and S2, No Murmur Lungs: Normal Breath Sounds, No Wheeze, Rales, Rhonchi Neuro: Alert and responsive, No focal deficits noted Abdomen: Soft, Non-Tender Skin: No rashes noted on visualized skin Musculoskeletal: No Chest Wall Tenderness Extremities: No Clubbing, No Cyanosis, No Edema, Normal Pulses Results 03/20/17 03:35 03/20/17 03:35 Lab Results 03/19/17 03/20/17 03/20/17 15:53 03:35 03:35 WBC 5.6 Hgb 12.6 L D Hct 37.0 L Plt Count 122 L Sodium 139 Potassium 4.1 Chloride 109 H Carbon Dioxide 24 BUN 22 Creatinine 1.21 Glucose 100 Calcium 8.4 L Troponin I < 0.03 - Imaging and Cardiology Echo: report reviewed - EKG Interpretation EKG results cardiology: personally reviewed Consult Discharge Plan - Plan Referrals: Elbert Ashley DO [Primary Care Provider] -
--- NOTE | 2017-03-20 13:19 | Internal Med Progress Note ---
Date of Encounter: 03/20/17 Time of Encounter: 13:18 - Assessment and plan (1) Vasodepressor syncope Current Visit: Yes Status: Acute Assessment and plan: History of orthostatic hypotension contributing to prior syncopal episodes Currently BP within acceptable range cardiology evaluation appreciated continue Amlodipine for hypertension continue Midodrine for othrostatic syncopal episodes as pt has history of positive tilt table testing in 2016 will continue to closely monitor will obtain PT/OT evaluation (2) Orthostatic dizziness Current Visit: Yes Status: Chronic Assessment and plan: as listed above (3) Chronic kidney disease Current Visit: Yes Status: Chronic Assessment and plan: Renal function at baseline continue to closely monitor Qualifiers: Chronic kidney disease stage: unspecified stage Qualified Code(s): N18.9 - Chronic kidney disease, unspecified (4) DVT prophylaxis Current Visit: Yes Status: Acute Assessment and plan: Heparin SQ (5) Hypertension Current Visit: Yes Status: Chronic Assessment and plan: BP within acceptable range continue norvasc will closely monitor BP Qualifiers: Hypertension type: essential hypertension Qualified Code(s): I10 - Essential (primary) hypertension (6) Obesity (BMI 30.0-34.9) Current Visit: Yes Status: Chronic - Subjective Interval history: Pt seen and examined at bedside. Resting in bed and denies any discomfort. Reports of requiring assistance at home with ambulation. Denies any lightheadedness or dizziness at this time. - Constitutional Vitals: Temp Pulse Resp BP Pulse Ox 98.0 F 72 18 123/84 93 03/20/17 11:06 03/20/17 11:06 03/20/17 11:06 03/20/17 11:06 03/20/17 11:06 General appearance: Present: cooperative, A&O X 3, no acute distress, answers questions appropriately - Head Head exam: Present: atraumatic, normocephalic - Eye Eye exam: Present: conjuntiva pink, sclera anicteric - Respiratory Respiratory exam: Present: CTAB. Absent: respiratory distress, wheezes - Cardiovascular Cardiovascular exam: Present: RRR, +S1, +S2. Absent: diastolic murmur, gallop, rubs, systolic murmur - GI/Abdominal GI/Abdominal exam: Present: normal bowel sounds, soft, no peritoneal signs. Absent: distended, tenderness - Extremities Exam Extremities exam: Present: warm, radial pulses palpable and symmetrical. Absent : calf tenderness, pedal edema - Neurological Exam Neurological exam: Present: alert, oriented X3 Internal Medicine: Result - Labs CBC & Chem 7: 03/20/17 03:35 03/20/17 03:35 Labs: Short CBC 03/20/17 Range/Units 03:35 WBC 5.6 (4.3-11.1) K/mcL Hgb 12.6 L D (12.9-16.9) g/dL Hct 37.0 L (37.5-50.1) % Plt Count 122 L (140-400) K/mcL BMP 03/20/17 03:35 Sodium 139 Potassium 4.1 Chloride 109 H Carbon Dioxide 24 BUN 22 Creatinine 1.21 Glucose 100 Calcium 8.4 L Cardiac Enzymes 03/19/17 Range/Units 15:53 Troponin I < 0.03 (< 0.04) ng/mL - Impressions Impressions Echocardiogram 03/19/17 15:22 Impressions: LVEF 60-65%. Normal LV chamber size and function. Mild concentric left ventricular hypertrophy. Mild left ventricular diastolic dysfunction. Normal right ventricular structure and function. No evidence of pulmonary hypertension. No significant valvular dysfunction. Left Ventricular Wall Motion: Rest Echo Findings All wall segments showed normal motion. Findings: Study Quality * Technically adequate exam. ECG Findings * Normal sinus rhythm. Left Ventricle * LVEF 60-65%. * Normal LV chamber size and function. * Mild concentric left ventricular hypertrophy. * Mild left ventricular diastolic dysfunction. Right Ventricle * Normal right ventricular structure and function. Left Atrium * Mildly dilated left atrium. Right Atrium * Normal right atrial size. Interatrial Septum * Interatrial septum not well evaluated. Aortic Valve * Trileaflet aortic valve with normal function. * No aortic regurgitation. * No aortic stenosis. Mitral Valve * Normal mitral valve structure and function. * No mitral regurgitation. * No mitral stenosis. Tricuspid Valve * Normal tricuspid valve structure and function. * Trace tricuspid regurgitation. * No evidence of pulmonary hypertension. Pulmonic Valve * Normal pulmonic valve structure and function. * No pulmonic regurgitation. Aorta * Normally sized aortic root. Pericardium * The pericardium appears normal. IVC * The IVC is not well evaluated. Pulmonary Artery * Normal visualized portions of the main pulmonary artery. Consult Discharge Plan - Plan Referrals: Elbert Ashley DO [Primary Care Provider] -
[2017-03-21] MEDS: *HR* Heparin 5,000 UNIT/ML VIAL SQ SCH (05:40)
[2017-03-21] MEDS: amLODIPine 5 MG TABLET PO SCH (08:28)
[2017-03-21] MEDS: Carbidopa/Levodopa 25/100 TABLET PO SCH (08:28)
--- NOTE | 2017-03-21 09:29 | Cardiology Progress Note ---
Date of Encounter: 03/21/17 Time of Encounter: 09:27 Assessment and Plan (1) Vasodepressor syncope Current Visit: Yes Status: Acute Vasodepressor syncope. Orthostatic vitals continue to be positive. H/o abnormal tilt table test in 2016 suggesting predisposition to vasodepressor syncope. B/p in the 70's systolic on arrival. Also hypertensive during stay- blood pressure improved with addition of norvasc. TTE shows preserved EF. No significant valvular disease. Telemetry shows avg HR 68 bpm. No bradycardia or pauses seen. No VT. Patient denies recurrent symptoms. Continue compression stockings and midodrine. Norvasc for hypertension. Discussed liberal fluid intake at home. Instructed to make slow position changes. Discussed with Dr. New, if he is ambulating in the hallway without significant symptoms he can be discharged home. Recommend that he keeps b/p log for his cardiology f/u with Dr. Hall. Please call with questions. (2) Orthostatic dizziness Current Visit: Yes Status: Chronic (3) Hypertension Current Visit: Yes Status: Chronic Norvasc added. Qualifiers: Hypertension type: essential hypertension Qualified Code(s): I10 - Essential (primary) hypertension Discussion w patient/family: The assessment and plan as outlined above was discussed with the patient and/or family members who expressed understanding and agreement. All questions were answered. Thank you for involving us in the care of your patient. Please call with any questions. Subjective Principal diagnosis: vasodepressor syncope, autonomic dysfunction Interval history: Mr. Burrell denies recurrent symptoms. Currently sitting up in chair. Objective Vital Signs, Last 4 Hours Temp Pulse Pulse Pulse Pulse Resp BP 03/21/17 09:01 80 83 80 03/21/17 08:33 97.7 F 75 16 117/70 BP BP BP Pulse Ox 03/21/17 09:01 136/81 116/71 90/57 03/21/17 08:33 96 General: Conversant, No Apparent Distress HEENT: Atraumatic, Normocephaly, Mucus Membranes Moist Neck: No JVD, Normal carotid pulses Cardiac: Reg Rate and Rhythm, Normal S1 and S2, No Murmur Lungs: Normal Breath Sounds, No Wheeze, Rales, Rhonchi Neuro: Alert and responsive, No focal deficits noted Abdomen: Soft, Non-Tender Skin: No rashes noted on visualized skin Musculoskeletal: No Chest Wall Tenderness Extremities: No Clubbing, No Cyanosis, No Edema, Normal Pulses Results 03/20/17 03:35 03/20/17 03:35 - Imaging and Cardiology Echo: report reviewed - EKG Interpretation EKG results cardiology: personally reviewed - VTE Documentation of Mechanical Device: Graduated compression elastic hosiery Consult Discharge Plan - Plan Referrals: Elbert Ashley DO [Primary Care Provider] -
[2017-03-21 11:07] VITALS: BP 94/61
--- NOTE | 2017-03-21 13:27 | Discharge Summary ---
Date of Encounter: 03/21/17 Time of Encounter: 12:20 - Discharge Diagnosis (1) Vasodepressor syncope Priority: Primary Status: Acute (2) Orthostatic dizziness Priority: Primary Status: Chronic (3) Chronic kidney disease Priority: Secondary Status: Chronic Qualifiers: Chronic kidney disease stage: unspecified stage Qualified Code(s): N18.9 - Chronic kidney disease, unspecified (4) DVT prophylaxis Priority: Secondary Status: Acute (5) Hypertension Priority: Secondary Status: Chronic Qualifiers: Hypertension type: essential hypertension Qualified Code(s): I10 - Essential (primary) hypertension (6) Obesity (BMI 30.0-34.9) Priority: Secondary Status: Chronic - Discharge Medications Prescriptions: RX: amLODIPine [Norvasc] 2.5 mg PO DAILY #30 tablet Home Medications: RX: Levothyroxine [Synthroid] 75 mcg PO 30 08/24/15 [History] RX: Carbidopa/Levodopa [Carbidopa-Levodopa 25-100 Tab] 2 tab PO TID 03/19/17 [ History] RX: Midodrine HCl 5 mg PO TID 03/19/17 [History] RX: Tamsulosin [Flomax] 0.4 mg PO DAILY 03/19/17 [History] RX: amLODIPine [Norvasc] 2.5 mg PO DAILY #30 tablet 03/21/17 [Rx] Allergies/Adverse Reactions: 3 Allergy/AdvReac Type Severity Reaction Status Date / Time No Known Allergies Allergy Verified 03/19/17 10:57 Procedures/tests Complete & Pending: Procedures Performed prior 72 hours Category Date Time Status EV carotid duplex imaging BI Routine Y 03/19/17 14:18 Completed EV echocardiogram Routine Y 03/19/17 15:22 Completed Date of admission: 03/19/17 13:20 Primary care physician: Elbert Ashley, Consults: 03/19/17 14:07 Consult to Cardiology [CONS] Routine Comment: Consulting Provider: George Gonzalez Reason for Consult: Recurrent syncope, history of vasodepressive syndrome Time Notified: 14:08 Call Completed: No 03/20/17 14:48 Consult to Occupational Therapy [CONS] Stat Comment: Evaluate, develop and implement POC Reason for Consult: evaluation for disposition Consult to Physical Therapy [CONS] Stat Comment: Evaluate, develop and implement POC Reason for Consult: evaluation for disposition Discharging clinician: Sushma Maddox Anticipated date of discharge: 03/21/17 - Patient Status Disposition: Home Health Service Condition: Good Functional capacity at discharge: uses cane/walker Overall status at discharge: patient is back to baseline - Discharge Instructions Follow Up With: Elbert Ashley DO [Primary Care Provider] - Additional Instructions: Please follow up with cardiology and your primary care physician within five days after your discharge from the hospital. Amlodipine 2.5mg once a day has been added to your home medications. Please hold Amlodipine and Tamsulosin if your systolic blood pressure is less than 100. Please keep a daily blood pressure log and take this log with you to your student development dean's appointment. Resume all other medications as prescribed by your primary care physician and student development dean. - Diet and Activity Activity: as per physical therapy Diet: low salt diet Hospital course: Mr. Burrell is a 81 year old male with PMH of hypothyroidism, orthostatic hypotension, Hypertension who was admitted for vasodepressor syncope. He was evaluated by cardiology and Amlodipine and Midodrine were started. Pt responded well to therapy. Physical therapy evaluated the patient and home health was recommended. Pt is currently hemodynamically stable and will be discharged to home with follow up with primary care physician and cardiology. - Time Spent with Patient Total time spent providing and/or coordinating discharge services: Less than 30 minutes - Constitutional Vitals: Temp Pulse Resp BP Pulse Ox 97.7 F 74 18 94/61 93 03/21/17 11:04 03/21/17 12:06 03/21/17 12:06 03/21/17 12:06 03/21/17 12:06 General appearance: Present: cooperative, A&O X 3, no acute distress, answers questions appropriately - Head Head exam: Present: atraumatic, normocephalic - Eye Eye exam: Present: conjuntiva pink, sclera anicteric - Respiratory Respiratory exam: Present: CTAB. Absent: respiratory distress, wheezes - Cardiovascular Cardiovascular exam: Present: RRR, +S1, +S2. Absent: diastolic murmur, gallop, rubs, systolic murmur - GI/Abdominal GI/Abdominal exam: Present: normal bowel sounds, soft, no peritoneal signs. Absent: distended, tenderness - Extremities Exam Extremities exam: Present: warm, radial pulses palpable and symmetrical. Absent : calf tenderness - Neurological Exam Neurological exam: Present: alert, oriented X3 - VTE Documentation of Mechanical Device: Graduated compression elastic hosiery
--- NOTE | 2017-03-21 13:34 | Physician Discharge Referral ---
Home Health/Hosp Referral Info Transfer to: Home Health Provider in Charge Post Discharge: PCP - Diagnosis (1) Vasodepressor syncope Priority: Primary Status: Acute (2) Orthostatic dizziness Priority: Primary Status: Chronic (3) Chronic kidney disease Priority: Secondary Status: Chronic (4) DVT prophylaxis Priority: Secondary Status: Acute (5) Hypertension Priority: Secondary Status: Chronic (6) Obesity (BMI 30.0-34.9) Priority: Secondary Status: Chronic - Respiratory Orders Smoking Cessation: Smoking cessation has been advised. For more information, call the [place] Tobacco Quit Line at 0-168-AXAY-NOW. - Services Needed Following services are medically necessary services: Nursing, Home Health Aide, Physical Therapy, Occupational Therapy - Transfer Medications Prescriptions: amLODIPine [Norvasc] 2.5 mg PO DAILY #30 tablet Home Medications: Levothyroxine [Synthroid] 75 mcg PO 30 08/24/15 [History] Carbidopa/Levodopa [Carbidopa-Levodopa 25-100 Tab] 2 tab PO TID 03/19/17 [ History] Midodrine HCl 5 mg PO TID 03/19/17 [History] Tamsulosin [Flomax] 0.4 mg PO DAILY 03/19/17 [History] amLODIPine [Norvasc] 2.5 mg PO DAILY #30 tablet 03/21/17 [Rx] Allergies/Adverse Reactions: 3 Allergy/AdvReac Type Severity Reaction Status Date / Time No Known Allergies Allergy Verified 03/19/17 10:57 Certification: Further, I certify that my clinical findings support that this patient is homebound (i.e. absences from home require considerable and taxing effort and are for medical reasons or protestant services or infrequently or short duration when for other reasons) because: Homebound Reason: Patient requires assistance of a person or device to safely leave home Attestation: My signature below is to certify that this patient is under my care and that I, or nurse practitioner, or a physician's cook's assistant working with me, has a face-to -face encounter with this patient.
== END 2017-03-21 14:30 | disposition home health service (06) ==
LOC: EMEROO 10:33 → 2ANU 10:33
PROVIDERS: ADMIT Internal Medicine Cardiovascular Disease; ATTEND Internal Medicine